=== PATIENT | female | born 2000 | race Caucasian/White ===

== ENCOUNTER 2019-05-17 13:38 | Inpatient (IN) | payer MEDICAID ==
[~2019-05-17] VITALS: Ht 165.1 cm; Wt 122.0 kg
--- NOTE | 2019-05-17 13:42 | NUR ---
PATIENT BIBA TO BED 11 AT THIS TIME.
[2019-05-17 13:53] VITALS: BP 165/79
--- NOTE | 2019-05-17 13:57 | NUR ---
LEFT A MESSAGE TO HER MOTHER SILVIA
--- NOTE | 2019-05-17 14:10 | NUR ---
19 Y/O BIBA C/C SEIZURES. PER PROMOTIONAL MARKETING ANALYST PT HAD 9 SEIZURES BEFORE EMS ARRIVED; 3 OF THE SEIZURES LASTED MORE THAN 3 MINS. PER DIRECTOR NO MEDICATIONS GIVEN AT SCHOOL, NO FALL OR HEAD TRAUMA, PT ON WHEELCHAIR WHEN SEIZURES OCCURRED. PER EMS PT HAD 3 SEIZURES EN-ROUTE TO ER. HX: SEIZURE. RX:TEGRETOL,VALPORIC ACID,KEPPRA,VIMPAT. PT RESTING WITH SEIZURE PRECAUTIONS IN PLACE, BOTH RAILS UP AND PADDED, MOTHER AT BEDSIDE.
[2019-05-17] MEDS ORDERED: LORazepam 2 MG/ML VIAL IVP ONE (14:45)
[2019-05-17 15:27] LABS: BASOPHILS % (AUTO) 0.4 % (0.0-2.0); EOSINOPHILS # (AUTO) 0.1 K/uL (0-0.4); EOSINOPHILS % (AUTO) 1.2 % (0.0-4.0); HEMATOCRIT 39.5 % (36-48); HEMOGLOBIN 12.8 g/dL (12.0-16.0); LYMPHOCYTES # (AUTO) 3.5 K/uL (2.5-16.5); LYMPHOCYTES % (AUTO) 34.9 % (20.5-51.1); MEAN CORPUSCULAR HEMOGLOBIN 28 pg (27-31); MEAN CORPUSCULAR HGB CONC 32 g/dL (33-37); MEAN CORPUSCULAR VOLUME 86.2 fL (80-94); MONOCYTES # (AUTO) 1.3 K/uL (0.8-1.0); MONOCYTES % (AUTO) 12.6 % (1.7-9.3); NEUTROPHILS # (AUTO) 5.1 K/uL (1.8-7.7); NEUTROPHILS % (AUTO) 50.9 % (42.2-75.2); PLATELET COUNT (AUTO) 295 K/uL (140-450); RED BLOOD CELL COUNT(AUTO) 4.58 MIL/uL (4.20-5.40); RED CELL DISTRIBUTION WIDTH 13.1 % (11.6-13.7)
[2019-05-17 16:04] LABS: ANION GAP 10.7 (8-16); CARBON DIOXIDE 28.3 mmol/L (21-32); CREATININE 0.6 mg/dL (0.6-1.3)
--- NOTE | 2019-05-17 18:34 | NUR ---
PT RESTING IN BED, MOTHER AT BEDSIDE, SIDE RAIL UP, SZ PRECAUTIONS IN PLACE
--- NOTE | 2019-05-17 19:04 | NUR ---
Ivette stevens in [facility] - 05/17/19 at 1945 by [id number] RECEIVED REPORT FROM BRENDAN BAUER. TRANSFER OF CARE AT THIS TIME.
--- NOTE | 2019-05-17 19:08 | NUR ---
REPORT GIVEN TO BRENDAN MCGHEE FOR CONTINUITY OF CARE
--- NOTE | 2019-05-17 19:08 | NUR ---
RECEIVED REPORT FROM FROM BRENDAN BAUER. TRANSFER OF CARE AT THIS TIME.
--- NOTE | 2019-05-17 19:45 | NUR ---
PT LAYING IN BED, X 2 SIDE RAILS RAISED. RR EVEN AND UNLABORED. VSS. FAMILY AT BEDSIDE. WILL CONTINUE TO MONITOR.
--- NOTE | 2019-05-17 20:08 | NUR ---
PT STATES SHE IS HUNGRY AND REQUESTS A SANDWICH, MEAL PROVIDED TO PT AT THIS TIME
[2019-05-17] MEDS ORDERED: ACETAMINOPHEN 325 MG TAB PO PRN (20:35)
[2019-05-17] MEDS ORDERED: ONDANSETRON 4 MG/2 ML VIAL IVP PRN (20:35)
[2019-05-17] MEDS ORDERED: HYDROcodone/APAP 7.5/325 MG 1 TAB PO PRN (20:35)
[2019-05-17] MEDS: DOCUSATE SODIUM 100 MG GELCAP PO SCH (21:00)
--- NOTE | 2019-05-17 21:25 | NUR ---
Patient will be admitted to care of DR HUITRON. Admited to TELE. Will go to room 120A. Belongings list completed. Report to BRENDAN VILLAFANA.
[2019-05-17 21:30] VITALS: BP 112/55
--- NOTE | 2019-05-17 21:30 | NUR ---
RECEIVED PT FROM ER NURSE, TAZ. PT CAME IN [facility] AND ABLE TO AMBULATE TO [facility] BED. PT'S MOTHER AT BEDSIDE. PT INTELLECTUAL DISABLE. NO SOB OR ANY RESPIRATORY DISTRESS NOTED. BREATHING EVEN AND UNLABORED. IV SITE ON LAC, 20G, PATENT, INTACT, AND ASYMPTOMATIC. DX, HX: SEIZURES. BOARD UPDATED, SEIZURE PRECAUTION IN PLACE. BED IN LOW POSITION. PT HAD BM. CHANGED PT WITH CONSTRUCTION COST ESTIMATOR, INGRID, MRSA SWAB DONE, VS CHECKED, WITHIN PT'S BASELINE. CALL LIGHT WITHIN REACH. WILL CONTINUE TO MONITOR.
[2019-05-17 21:40] LABS: PROTHROMBIN TIME 10.3 secs (10.8-13.4)
[2019-05-17 21:42] LABS: THYROID STIMULATING HORMONE 0.01 uIU/mL (0.34-3.74)
[2019-05-17 22:05] LABS: MAGNESIUM 1.8 mg/dL (1.8-2.4); PHOSPHORUS 3.7 mg/dL (2.5-4.9)
--- NOTE | 2019-05-17 22:31 | NUR ---
GIVEN HEPARIN MD ORDERED, PT TOLERATED WELL. HELD COLACE D/T PT HAVE A LARGE BM.
[2019-05-17] MEDS ORDERED: DIVA500E1 PO (22:56)
[2019-05-17] MEDS ORDERED: LEVE1000 PO (22:56)
[2019-05-17] MEDS ORDERED: LEVE750T3 PO (22:56)
[2019-05-17] MEDS ORDERED: CARB200T1 PO (22:56)
--- NOTE | 2019-05-17 23:58 | NUR ---
VS CHECKED, WITHIN PT'S BASELINE. WILL CONTINUE TO MONITOR.
[2019-05-18] VITALS: BP 127/74
--- NOTE | 2019-05-18 02:05 | NUR ---
PT SITTING IN BED, AWAKE. NO ACUTE DISTRESS NOTED.
[2019-05-18 04:00] VITALS: BP 132/83
--- NOTE | 2019-05-18 04:02 | NUR ---
PT SITTING IN BED, AWAKE. VS CHECKED, WITHIN PT'S BASELINE. NO ACUTE DISTRESS NOTED.
[2019-05-18] MEDS: LEVOTHYROXINE 0.025 MG TAB PO SCH (05:53)
--- NOTE | 2019-05-18 05:53 | NUR ---
PT REFUSED TO TAKE SYNTHROID. EXPLAINED BENEFIT AND RISK X3, PT STILL REFUSED.
[2019-05-18 06:26] LABS: ANION GAP 13.1 (8-16); BASOPHILS % (AUTO) 0.4 % (0.0-2.0); CARBON DIOXIDE 26.8 mmol/L (21-32); CREATININE 0.6 mg/dL (0.6-1.3); EOSINOPHILS # (AUTO) 0.1 K/uL (0-0.4); HEMATOCRIT 38.6 % (36-48); HEMOGLOBIN 12.7 g/dL (12.0-16.0); LYMPHOCYTES # (AUTO) 4.4 K/uL (2.5-16.5); LYMPHOCYTES % (AUTO) 41.6 % (20.5-51.1); MEAN CORPUSCULAR HEMOGLOBIN 28 pg (27-31); MEAN CORPUSCULAR HGB CONC 33 g/dL (33-37); MEAN CORPUSCULAR VOLUME 85.9 fL (80-94); MONOCYTES # (AUTO) 1.2 K/uL (0.8-1.0); MONOCYTES % (AUTO) 10.8 % (1.7-9.3); NEUTROPHILS # (AUTO) 4.9 K/uL (1.8-7.7); NEUTROPHILS % (AUTO) 46.2 % (42.2-75.2); PLATELET COUNT (AUTO) 314 K/uL (140-450); POTASSIUM 3.9 mmol/L (3.5-5.1); RED BLOOD CELL COUNT(AUTO) 4.49 MIL/uL (4.20-5.40); RED CELL DISTRIBUTION WIDTH 13.1 % (11.6-13.7); WHITE BLOOD COUNT (AUTO) 10.7 K/uL (4.5-11.0)
[2019-05-18 06:32] LABS: MAGNESIUM 1.8 mg/dL (1.8-2.4); PHOSPHORUS 3.1 mg/dL (2.5-4.9)
--- NOTE | 2019-05-18 06:50 | NUR ---
PT HAD SEIZURE AT 0645, GIVEN ATIVAN MD ORDERED. SEIZURE ENDS AT 0650. PT CALM DOWN. VS CHECKED, 126/95, 97.0, 95, 95%, 19. PT IN STABLE CONDITION. WILL CONTINUE TO MONITOR.
[2019-05-18] MEDS: LORazepam 2 MG/ML VIAL IM/IVP PRN ×2 (06:57→20:24)
[2019-05-18 07:00] LABS: CHOL/HDL RATIO 3.8 (1-4.5)
--- NOTE | 2019-05-18 07:18 | NUR ---
ENDORSED PT TO DAY SHIFT NURSEKEVIN. PT IN STABLE CONDITION.
--- NOTE | 2019-05-18 07:19 | NUR ---
RECEIVED REPORT FROM OVERNIGHT BABYSITTER NURSE LEDY FOR CONTINUITY OF CARE. PT IN STABLE CONDITION. RESPIRATIONS EVEN AND UNLABORED. IV INTACT AND PATENT. SAFETY MEASURES IN PLACE. BED IN LOW POSITION. BED ALARM ON. CALL LIGHT AT BEDSIDE. WILL CONTINUE TO MONITOR.
[2019-05-18 08:00] VITALS: BP 143/80
[2019-05-18] MEDS: DOCUSATE SODIUM 100 MG GELCAP PO SCH ×2 (09:00→21:00)
[2019-05-18] MEDS: DIVALPROEX 500 MG TABEC PO SCH ×2 (09:00→21:00)
[2019-05-18] MEDS: FAMOTIDINE 20 MG TAB PO SCH (09:00)
[2019-05-18] MEDS ORDERED: carBAMazepine 200 MG TAB PO SCH (09:00)
[2019-05-18] MEDS ORDERED: levETIRAcetam 500 MG TAB PO SCH ×2 (09:00→17:00)
--- NOTE | 2019-05-18 09:20 | NUR ---
PATIENT HAS BEEN SCREENED AND CATEGORIZED MODERATE NUTRITION RISK. PATIENT WILL BE SEEN WITHIN 3-5 DAYS OF ADMISSION. 05/20/19 05/22/[address]
--- NOTE | 2019-05-18 09:55 | NUR ---
INFORMED COLTON DERAS PT SLEEPING UNABLE TO WAKE FOR MORNING DUE MEDICATION. NOT SAFE TO GIVE PO MEDS. COLTON DERAS WILL CHANGE TO IV MEDICATIONS.
--- NOTE | 2019-05-18 11:00 | NUR ---
ASSISTED WITH CHANGING AND CLEANING AT THIS TIME. PT TOLERATED WELL.
[2019-05-18 12:00] VITALS: BP 136/78
[2019-05-18] MEDS: levETIRAcetam 1,000 MG in NACL 0.9% 100 ML IV SCH ×2 (12:02→21:06)
--- NOTE | 2019-05-18 13:14 | NUR ---
Supervisor Costuming Note: Basic Screen: Yes High Risk DC Screen [place]: SILVIA CUEVAS Home Relationship: MOTHER Pre-Admission Living Arrangements: Lives with Other Prior ADL Needs Assistance Current Home Health Name/Tel: N/A Current DME/02 Name/Tel: N/A Current Hospice Name/Tel: N/A Current Dialysis Name/Tel: N/A Healthcare Decision Maker: Patient Advance Directive No Physician Orders for Life Sustaining Treatment Form No Person Taught: Patient Teaching Tools: Verbal Factors Affecting Learning: None Participation Level: Refused Evaluation: Verbalizes Understanding Needs Additional Education: No Discipline: Case Mgt/Social Svcs Tentative Discharge Plan/Destination: No Needs Identified Tentative Discharge Plan Summary: Patient is a 19-year-old femqale admitted for seizures. Patient has OMHX of double cortex syndrome. Patient was admitted from home. SW contacted patient's mother Silvia Cuevas [phone] to verify demographics. Per Silvia, patient's PCP is Dr. Williams Johnston and her last appointment was 1 month ago. Silvia stated that patient needs assistance with all ADLs and receives 100 hours a month, and a caregiver assists patient everyday. Silvia was unable to provide contact information for [facility] worker, but Silvia stated that [facility] worker is aware of hospitalization. Patient's tentative discharge plan is to return home. No further needs identified. Signature: JOSE Espinosa Date: May 18, 2019 Time: 13:12
--- NOTE | 2019-05-18 13:15 | NUR ---
PT SLEEPING AT THIS TIME. RESPIRATIONS EVEN AND UNLABORED. BED IN LOW POSITION. BED ALARM ON. WILL CONTINUE TO MONITOR.
--- NOTE | 2019-05-18 15:40 | NUR ---
PT EATING LUNCH PLATE AT THIS TIME. PT IN STABLE CONDITION. BED IN LOW POSITION. WILL CONTINUE TO MONITOR.
[2019-05-18 16:00] VITALS: BP 128/83
--- NOTE | 2019-05-18 17:45 | NUR ---
PT SITTING UP IN BED WATCHING VIDEO ON PHONE AT THIS TIME. WILL CONTINUE TO MONITOR.
--- NOTE | 2019-05-18 19:15 | NUR ---
GAVE REPORT TO DIRECTOR MEDICAL AFFAIRS NURSE FOR CONTINUITY OF CARE. PT IN STABLE CONDITION.
[2019-05-18 20:00] VITALS: BP 145/113
--- NOTE | 2019-05-18 20:20 | NUR ---
PT HAD SEIZURE PER MOTHER AT BEDSIDE. PT POSTICTAL WHEN NURSE CAME IN THE ROOM. PRN ATIVAN ADMINISTERED. NOTIFIED DR CAICEDO. UNABLE TO ADMINISTER SCHEDULED MEDS DUE TO PATIENT'S SOMNOLENCE. MADE DR CAICEDO AWARE THAT PER PATIENT'S MOTHER, PT TAKES DEPAKOTE IN LIQUID FORM AT HOME.
[2019-05-18] MEDS: carBAMazepine 200 MG TAB PO SCH ×2 (21:00→23:44)
--- NOTE | 2019-05-18 23:44 | NUR ---
PT AWAKE IN BED. ABLE TO ADMINISTER ORDERED TEGRETOL. PT TOLERATED WELL
[2019-05-19] VITALS: BP 116/74
--- NOTE | 2019-05-19 02:48 | NUR ---
PT ASLEEP IN BED. NO S/S OF DISTRESS NOTED
[2019-05-19] MEDS: levETIRAcetam 1,000 MG in NACL 0.9% 100 ML IV SCH ×2 (04:50→12:49)
[2019-05-19 04:57] VITALS: BP 121/81
[2019-05-19] MEDS: LEVOTHYROXINE 0.025 MG TAB PO SCH (06:11)
--- NOTE | 2019-05-19 07:28 | NUR ---
PT REPORT GIVEN TO AM NURSE. PT ENDORSED IN STABLE CONDITION
--- NOTE | 2019-05-19 07:29 | NUR ---
RECEIVED REPORT FROM RESIDENTIAL MANAGER NURSE. PATIENT LYING DOWN IN BED SLEEPING, AROUSABLE BY VOICE. NO DISTRESS NOTED. DENIES ANY PAIN. SCHEDULED MEDICATIONS DUE GIVEN. MENTAL DISABILITY, AAOX2, CALM, COOPERATIVE, SKIN COLOR APPROPRIATE TO ETHNICITY, WARM TO TOUCH. IV SITE INTACT, PATENT, AND ON SALINE LOCK. HAD 1 SEIZURE LAST NIGHT PER RN REPORTS. REVIEWED PLAN OF CARE WITH PATIENT. REINFORCEMENT NEEDED. SAFETY MEASURES IN PLACE, CALL LIGHT WITHIN REACH. WILL CONTINUE TO MONITOR.
[2019-05-19 08:00] VITALS: BP 132/80
[2019-05-19] MEDS: carBAMazepine 200 MG TAB PO SCH ×2 (09:00→10:53)
[2019-05-19] MEDS: FAMOTIDINE 20 MG TAB PO SCH ×2 (09:00→10:53)
[2019-05-19] MEDS: DOCUSATE SODIUM 100 MG GELCAP PO SCH (09:00)
[2019-05-19] MEDS: DIVALPROEX 500 MG TABEC PO SCH ×2 (09:00→10:52)
--- NOTE | 2019-05-19 09:00 | NUR ---
PATIENT LYING DOWN IN BED VERY SLEEPY, ABLE TO AROUSE WITH PAIN STIMULATION BUT THEN FALLS BACK TO SLEEP. PATIENT HAD 1 SEIZURE LAST NIGHT PER NIGHT RN REPORTS AND HAS BEEN SLEEPING SINCE POST-ICTAL. WILL CONTINUE TO MONITOR.
[2019-05-19] MEDS ORDERED: CARB200T7 PO (10:04)
--- NOTE | 2019-05-19 10:23 | NUR ---
PATIENT CONTINUES TO BE VERY SLEEPY, ABLE TO AROUSE WITH VOICE AND PAIN STIMULATION BUT FALLS BACK TO SLEEP. UNABLE TO TAKE SCHEDULED MEDICATIONS AT THIS TIME. WILL CONTINUE TO MONITOR.
--- NOTE | 2019-05-19 11:01 | NUR ---
PATIENT MORE AWAKE, ASSISTED PRINTED CIRCUIT BOARDS LAMINATOR IN CLEANING AND REPOSITIONING PATIENT. ORAL SEIZURE MEDICATIONS DUE GIVEN. WILL CONTINUE TO MONITOR.
[2019-05-19 12:00] VITALS: BP 114/69
[2019-05-19] MEDS ORDERED: LACO10SO PO (12:04)
--- NOTE | 2019-05-19 12:52 | NUR ---
PATIENT LYING DOWN IN BED SLEEPING, AROUSABLE BY VOICE AND PAIN. SCHEDULED MEDICATIONS DUE GIVEN. WILL CONTINUE TO MONITOR.
--- NOTE | 2019-05-19 16:30 | NUR ---
DISCHARGE INSTRUCTIONS PROVIDED TO MOTHER, SILVIA OVER THE PHONE SINCE PATIENT IS MENTALLY DISABLED. INSTRUCTIONS ON NEW/CHANGED MEDICATION REGIMEN, SIDE EFFECTS, DIET REGIMEN, WEIGHT LOSS, AND DISEASE PROCESS/MANAGEMENT OF SEIZURES PROVIDED TO MOTHER. ANSWERED ALL OF SILVIA'S QUESTIONS REGARDING DISCHARGE. SILVIA TO AWAIT FOR PATIENT TO GET HOME BECAUSE MOTHER DOES NOT DRIVE. PER MOTHER PATIENT WILL BE ALRIGHT IN T[place]I RIDE BY HERSELF UNTIL SHE GETS HOME. ALL PAPERS AND BELONGINGS PLACED IN BAG. PATIENT ALL DRESSED UP. AWAITING FOR TAXI TO COME CONSTRUCTION ANALYST PATIENT. WILL CONTINUE TO MONITOR.
--- NOTE | 2019-05-19 16:45 | NUR ---
LEESA AT [facility]. PATIENT DISCHARGED TO HOME WITH TAXI AT THIS TIME IN STABLE CONDITION. MOTHER SILVIA NOTIFIED AND AWAITING AT HOME.
== END 2019-05-19 16:40 | disposition home or self-care (01) | DRG 53 ==
LOC: MED 13:38 → MTU 20:41
PROVIDERS: ADMIT General Practice; ATTEND General Practice
DX: G40.901 Epilepsy, unspecified, not intractable, with status epilepticus (principal); Z68.41 Body mass index [BMI] 40.0-44.9, adult; E66.9 Obesity, unspecified; F79 Unspecified intellectual disabilities; E02 Subclinical iodine-deficiency hypothyroidism; Z71.3 Dietary counseling and surveillance
CPT/HCPCS: 36415; 70450; 71045; 76536; 80048; 80156; 80173; 83036; 83735; 83880; 84100; 84439; 84443; 84479; 84484; 85025; 85610; 85730; 87081; 93005; 96374; 99285; C1758; J1644; J1953; J2060; J7030; Q0092